=== PATIENT | female | born 1995 | race African-American/Black ===

== ENCOUNTER 2018-06-09 10:26 | Emergency (ER) | payer SELFPAY | END 2018-06-09 11:56 | disposition home or self-care (01) | LOC: SCSER 10:26 | DX: M75.92 Shoulder lesion, unspecified, left shoulder (principal) | CPT/HCPCS: 99283 ==

== ENCOUNTER → 2024-12-10 | Day surgery (SDC) | payer OTHER ==
[~2024-12-10] MED LIST: Rabies Vaccine Human 2.5 UNITS VIAL ONE
== END ==
LOC: ER/OP 09:01
PROVIDERS: ATTEND Nurse Practitioner Family
DX: Z29.14 Encounter for prophylactic rabies immune globulin (principal)
CPT/HCPCS: 90471; 90675

== ENCOUNTER → 2024-12-19 | Day surgery (SDC) | payer OTHER | LOC: ER/OP 09:17 | PROVIDERS: ATTEND Licensed Practical Nurse | DX: Z29.14 Encounter for prophylactic rabies immune globulin (principal) | CPT/HCPCS: 90675 ==